=== PATIENT | female | born 1975 ===

== ENCOUNTER 2023-12-04 23:02 | Observation (INO) | payer OTHER ==
[~2023-12-04 23:02] MED LIST: FAMOTIDINE 20 MG TAB ONE; GABAPENTIN 400 MG CAP ONE; KETOROLAC 15 MG/ML 1 ML VIAL ONE; LORazepam 2 MG/ML INJ ONE; MULTIVITAMINS, THERA 1 EACH TAB ONE; ONDANSETRON 4 MG/2 ML VIAL ONE; SODIUM CHLORIDE 0.9% 1,000 ML BAG ONE; traZODone HCL 50 MG TAB ONE
[2023-12-05] MEDS ORDERED: MULTIVITAMINS, THERA 1 EACH TAB ONE (08:08)
[2023-12-05] MEDS ORDERED: FAMOTIDINE 20 MG TAB ONE ×2 (08:08→21:13)
[2023-12-05] MEDS ORDERED: LEVOTHYROXINE 100 MCG TAB ONE (08:08)
[2023-12-05] MEDS ORDERED: FLUoxetine HCL 20 MG CAP ONE (08:08)
[2023-12-05] MEDS ORDERED: THIAMINE 100 MG TAB ONE ×2 (08:08→21:12)
[2023-12-05] MEDS ORDERED: GABAPENTIN 400 MG CAP ONE ×2 (12:35→21:14)
[2023-12-05] MEDS ORDERED: ONDANSETRON 4 MG/2 ML VIAL ONE (15:50)
[2023-12-05] MEDS ORDERED: ACETAMINOPHEN TAB 325 MG TAB ONE (18:50)
[2023-12-05] MEDS ORDERED: traZODone HCL 50 MG TAB ONE (21:12)
[2023-12-05] MEDS ORDERED: MELATONIN 5 MG TABLET ONE (21:12)
[2023-12-05] MEDS ORDERED: ATORVASTATIN 40 MG TAB ONE (21:13)
[2023-12-06] MEDS ORDERED: DEXAMETHASONE SOD PHOSPHATE 4 MG/ML 1 ML VIAL ONE (05:12)
[2023-12-06] MEDS ORDERED: LACTOBACILLUS ACIDOPHILUS/PECT 1 EACH CAPSULE PO ONE (08:41)
[2023-12-06] MEDS ORDERED: LORATADINE 10 MG TAB ONE (08:41)
[2023-12-06] MEDS ORDERED: THIAMINE 100 MG TAB ONE (08:41)
[2023-12-06] MEDS ORDERED: LEVOTHYROXINE 100 MCG TAB ONE (08:41)
[2023-12-06] MEDS ORDERED: FLUoxetine HCL 20 MG CAP ONE (08:42)
[2023-12-06] MEDS ORDERED: FAMOTIDINE 20 MG TAB ONE (08:42)
[2023-12-06] MEDS ORDERED: MULTIVITAMINS, THERA 1 EACH TAB ONE (08:42)
[2023-12-06] MEDS ORDERED: PANTOPRAZOLE 40 MG TABLET PO ONE (08:42)
[2023-12-06] MEDS ORDERED: GABAPENTIN 400 MG CAP ONE (08:54)
== END 2023-12-06 15:00 | disposition home or self-care (01) ==
LOC: INTOOBSV 23:02 → 6NMEDSUR 23:02
PROVIDERS: ADMIT Hospitalist; ATTEND Hospitalist
DX: F10.239 Alcohol dependence with withdrawal, unspecified (principal); R74.01 Elevation of levels of liver transaminase levels; R19.7 Diarrhea, unspecified; R16.0 Hepatomegaly, not elsewhere classified; R10.31 Right lower quadrant pain; F32.A Depression, unspecified; I10 Essential (primary) hypertension; E78.5 Hyperlipidemia, unspecified; E03.9 Hypothyroidism, unspecified; F41.9 Anxiety disorder, unspecified; F32.9 Major depressive disorder, single episode, unspecified; E28.2 Polycystic ovarian syndrome; Z88.4 Allergy status to anesthetic agent; Z88.5 Allergy status to narcotic agent; Z79.899 Other long term (current) drug therapy
CPT/HCPCS: 80061; 82607; 82746; 93005; 96361; 96374; 96375; 96376; 99285